=== PATIENT | male | born 1960 | race Caucasian/White ===

== ENCOUNTER → 2021-08-16 09:24 | Outpatient (BNVA) | payer SELFPAY | PROVIDERS: Visit Provider Physician Assistant Medical | DX: Z02.79 Encounter for issue of other medical certificate (principal) ==

== ENCOUNTER → 2022-09-10 13:30 | Outpatient (BNVA) | payer SELFPAY | PROVIDERS: Visit Provider Physician Assistant Medical | DX: Z02.1 Encounter for pre-employment examination (principal) ==

== ENCOUNTER 2025-01-21 15:08 | Outpatient (AMB) | payer MEDICARE, OTHER, SELFPAY ==
--- NOTE | 2025-01-21 15:09 | A.OFFVIS_ITS ---
Vital Signs 01/21/25 15:15 Height 5 ft 10 in Weight 194 lb BMI 27.8 BP 136/86 Blood Pressure Location Lt brachial Position Sitting Respiration 16 Pulse 63 Pulse Source Pulse Oximeter Pulse Oximetry (%) 98 Oxygen Delivery Method Room Air Intake Visit Reasons: Back pain Office Auditor Required: No Accompanied by: Self / Same As Patient Allergies codeine Allergy (Mild, Verified 01/21/25 15:18) Migraine HPI Comments Details: The patient is a 64-year-old male presenting with chronic low back pain. The chronic low back pain began in 1987 following a work-related injury involving [employer], which led to multiple surgeries over the years, inc luding a fusion in 1994 and hardware removal in 1996. The pain has persisted and worsened over time, with symptoms including numbness and tingling in the legs and feet, exacerbated by prolonged sitting or standing. The patient reports that sneezing or coughing exacerbates the pain, which radiates up the spine and down the left side. The patient has been under the care of multiple specialists and has tried various interventions, including physical therapy, medicare insurance specialist, and medication management. Current medications include Percocet, muscle relaxers and Valium, though the patient reports difficulty obtaining consistent prescriptions due to concerns about potential overdose. Completed physical therapy approximately a month ago without improvement of his symptoms. Denies red flag symptoms including new loss of bowel, bladder or saddle anesthesia - Onset: Began in 1987 following a work-related injury - Quality: Described as severe, with numbness and tingling - Location: Primarily in the lower back, radiating to legs and feet - Radiation: Pain radiates up the spine and down the left side - Exacerbating factors: Prolonged sitting, standing, sneezing, coughing - Relieving factors: patient care technician, movement - Interference: Affects ability to walk, sit, and perform daily activities - Affect: Pain impacts mood and psychological wellbeing, causing frustration - Analgesia: Current medications include Percocet and Valium, with inconsistent prescription access - Adverse Effects: Concerns about potential overdose with long-term medication use - Activities of Daily Living: 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 Answers questions appropriately. Fully engaged in examination. Skin: warm, dry, intact HEENT: Normocephalic. Hearing intact. Cardiac: External chest normal in appearance. Respiratory: No cough, audible wheezing or stridor. Abdomen: without gross distension. MS: No obvious swelling or deformities. Able to stand on bilateral tiptoes and bilateral heels.? Able to transition from sit to stand unassisted. Ambulates with bilaterally normal heel strike and toe off SLR negative bilaterally Tenderness over midline lumbar vertebrae and lumbar paraspinal muscles Full lumbar range of motion. Pain with extension. Nontender over bilateral PSIS Neurological: Oriented to person, place, time and situation. Thought process intact. No gait abnormalities appreciated. Psychiatric: Appropriate mood and affect. Good judgment and insight. Vital Signs: Last Vital Signs Pulse 63 01/21/25 15:15 Resp 16 01/21/25 15:15 BP 136/86 01/21/25 15:15 Pulse Ox 98 01/21/25 15:15 Oxygen Delivery Method Room Air 01/21/25 15:15 BMI result Body Mass Index 27.8 Assessment & Plan Assessment & Plan (1) Post laminectomy syndrome: Code(s): M96.1 - Postlaminectomy syndrome, not elsewhere classified Category: Medical (2) Chronic pain syndrome: Code(s): G89.4 - Chronic pain syndrome Category: Medical (3) Degenerative disc disease, lumbar: Code(s): M51.369 - Other intervertebral disc degeneration, lumbar region without mention of lumbar back pain or lower extremity pain Category: Medical (4) Lumbar spondylosis: Code(s): M47.816 - Spondylosis without myelopathy or radiculopathy, lumbar region Category: Medical (5) History of lumbar fusion: Code(s): Z98.1 - Arthrodesis status Category: Surgical Plan The plan includes obtaining updated imaging studies, specifically an MRI and x- ray, to assess the current state of the spine and identify any potential issues such as scar tissue or structural changes. Interventional management options, including spinal cord stimulation and injections, will be considered based on the imaging results. The patient will continue with current medications, including Percocet and Valium, while exploring alternative pain management strategies. Follow-up appointments will be scheduled after the imaging studies to discuss further management options. Patient was informed and verbally consented to the use of an ambient scribe for clinic note documentation during this visit. Orders: Orders XR lumbar spine 4V min Today G89.4 - Chronic pain syndrome, M47.816 - Spondylosis without myelopathy or radiculopathy, lumbar region, M51.369 - Other intervertebral disc degeneration, lumbar region without mention of lumbar back pain or lower extremity pain, M96.1 - Postlaminectomy syndrome, not elsewhere classified, Z98.1 - Arthrodesis status MR lumbar spine wo con Today G89.4 - Chronic pain syndrome, M47.816 - Spondylosis without myelopathy or radiculopathy, lumbar region, M51.369 - Other intervertebral disc degeneration, lumbar region without mention of lumbar back pain or lower extremity pain, M96.1 - Postlaminectomy syndrome, not elsewhere classified, Z98.1 - Arthrodesis status Patient Instructions: - Schedule MRI and x-ray appointments as soon as possible. - Continue taking prescribed medications, including Percocet and Valium, as directed. - Follow up with the clinic after imaging studies are completed to discuss results and treatment options. - Consider alternative pain management strategies discussed during the visit. Coding Level of Care Code New Pt Level 4 (94440) Complex EM visit Add On G2211 Diagnoses Post laminectomy syndrome M96.1 Chronic pain syndrome G89.4 Degenerative disc disease, lumbar M51.369 Lumbar spondylosis M47.816 History of lumbar fusion Z98.1
--- OUTSIDE RECORDS SUMMARY | 2025-01-21 15:10 | XMS_ITS | Clinical Summary ---
Author Organization [facility] Address [address] [place] [address] Care Team Providers Care Fire Extinguisher Repairer Name Role Phone Joe Ball MD Primary Care Provider + [phone] Allergies Active Allergy Reactions Criticality Noted Date Comments Codeine 04/19/2021 Medications Medication Sig Dispensed Refills Start Date End Date Status Valium 5 MG tablet Take 5 mg by mouth every 12 (twelve) hours as needed. for anxiety 0 04/12/2021 Active dronabinol (MARINOL) 10 MG capsule TAKE ONE CAPSULE BY MOUTH 3 TIMES A WEEK AT BEDTIME 0 04/12/2021 Active omeprazole (PriLOSEC) 40 MG capsule Take 40 mg by mouth 2 (two) times a day. 0 04/12/2021 Active ondansetron (ZOFRAN) 4 MG tablet TAKE ONE TABLET BY MOUTH EVERY 8 HOURS NEEDED FOR NAUSEA & VOMITING 0 04/12/2021 Active Percocet 7.5-325 MG per tablet TAKE TWO TABLETS BY MOUTH THREE TIMES A DAY NEEDED FOR PAIN 0 04/12/2021 Active Scopolamine (TRANSDERM-SCOP) 1 MG/3DAYS PLACE 1 PATCH ONTO THE SKIN EVERY 3 DAYS 0 03/16/2021 Active tiZANidine (ZANAFLEX) 4 MG tablet TAKE ONE TO TWO TABLETS BY MOUTH THREE TIMES A DAY NEEDED FOR MUSCLE SPASMS 0 04/12/2021 Active Active Problems No known active problems Social History Tobacco Use Types Packs/Day Years Used Date Smoking Tobacco: Never Smokeless Tobacco: Never Alcohol Use Standard Drinks/Week Comments Yes 0 (1 standard drink = 0.6 oz pur e alcohol) Couple times a week Sex and Gender Information Value Date Recorded Sex Assigned at Not on file Gender Identity Not on file Sexual Orientation Not on file Last Filed Vital Signs Vital Sign Reading Time Taken Comments Blood Pressure 130/74 04/19/2021 2:11 PM EST Pulse 69 04/19/2021 2:11 PM EST Temperature 36.3 C (97.4 F) 04/19/2021 2:11 PM EST Respiratory Rate - - Oxygen Saturation 100% 04/19/2021 2:11 PM EST Inhaled Oxygen Concentration - - Weight 85.3 kg (188 lb) 04/19/2021 2:11 PM EST Height 177.8 cm (5' 10 ) 04/19/2021 2:11 PM EST Body Mass Index 26.98 04/19/2021 2:11 PM EST Plan of Treatment Health Maintenance Due Date Last Done Comments Hepatitis C Screening 1960 COVID-19 Vaccine (#1) 03/30/1961 Depression Screening 1972 Preventative Health Evaluation 1978 DTap / Tdap / Td (1 - Tdap) 09/29/1979 Colon Cancer Screening (Colonoscopy) 2005 Shingrix-Zoster Vaccine (1 of 2) 2010 Influenza Vaccine (#1) 2025 Pneumococcal Vaccine (1 of 1 - PCV) 2025 RSV Adult > 60+ Yrs or Pregn ant (1 - 1-dose 75+ series) 09/29/2035 Hepatitis B Vaccines Aged Out No long er eligible based on patient's age to complete this topic Pneumococcal Vaccine Aged Out No long er eligible based on patient's age to complete this topic RSV Ped < 20 months Aged Out No longe r eligible based on patient's age to complete this topic Care Teams Fire Extinguisher Repairer Relationship Specialty Start Date End Date Joe Ball MD PCP - General Head Banquet Waiter/Waitress 04/19/21
[2025-01-21 15:15] VITALS: BP 136/86; PULSE 63; RESP 16; O2SAT 98; BMI 27.8
== END 2025-01-21 15:53 | disposition home or self-care (01) ==
LOC: HO.PMC 15:09
PROVIDERS: Visit Provider Registered Nurse Emergency
DX: M96.1 Postlaminectomy syndrome, not elsewhere classified (principal); G89.4 Chronic pain syndrome; M51.369 Other intervertebral disc degeneration, lumbar region without mention of lumbar back pain or lower extremity pain; M47.816 Spondylosis without myelopathy or radiculopathy, lumbar region; Z98.1 Arthrodesis status
CPT/HCPCS: 99204; G2211

== ENCOUNTER → 2025-01-21 15:08 | Outpatient (BNVA) | payer OTHER, MEDICARE, SELFPAY | PROVIDERS: Visit Provider Registered Nurse Emergency | DX: M96.1 Postlaminectomy syndrome, not elsewhere classified (principal); G89.4 Chronic pain syndrome; M51.369 Other intervertebral disc degeneration, lumbar region without mention of lumbar back pain or lower extremity pain; M47.816 Spondylosis without myelopathy or radiculopathy, lumbar region; Z98.1 Arthrodesis status | CPT/HCPCS: 99202 ==

== ENCOUNTER 2025-02-26 16:38 | Outpatient (REF) | payer OTHER, MEDICARE, SELFPAY ==
--- NOTE | ~2025-02-26 | MR_ITS ---
CLINICAL HISTORY: M96.1 - Postlaminectomy syndrome, not elsewhere classified --- Additional Notes or Special Instructions: Lower back pain with bilateral lower extremity numbness, weakness, MR lumbar spine with and without gadolinium Comparison: None Findings: Minimal retrolisthesis of L2 on L3 and L1 on L2. L5 laminectomy. Multilevel endplate degenerative changes. No acute fracture or pathologic bone lesion. Cauda equina is within normal limits. No cord signal abnormality. Multilevel degenerative changes: L1-L2: Minimal retrolisthesis of L1 on L2 and bilateral facet arthropathy causing mild spinal canal and moderate right neural foraminal stenosis. L2-L3: Disc bulge and facet arthropathy causing moderate spinal canal stenosis with crowding of the nerve roots, severe right and moderate left neural foraminal stenosis. L3-L4: Disc bulge asymmetric to the left, facet and ligamentum flavum hypertrophy causing severe spinal canal stenosis asymmetric to the left with crowding of the nerve roots, and moderate bilateral neural foraminal stenosis. L4-L5: Mild right neural foraminal stenosis. L5-S1: No significant spinal canal or neural foraminal stenosis. Fatty atrophy of the lower paraspinal muscles. IMPRESSION: Multilevel degenerative changes as above. This document has been electronically signed by: Gregory Vega MD on 03/01/2025 02:14:21
--- OUTSIDE RECORDS SUMMARY | 2025-02-26 16:43 | XMS_ITS | Clinical Summary ---
Author Organization [facility] [address] [facility] lding Address [address] [place] [phone] Phone Care Team Providers Care Assembly Machine Feeder Name Role Phone Unavailable Primary Care Provider Unavailabl e Allergies Active Allergy Reactions Criticality Noted Date Comments Codeine Headache 01/30/2016 Medications albuterol HFA (PROAIR HFA ; PROVENTIL HFA ; VENTOLIN HFA) 90 mcg/actuation inhaler Inhale 2 Puffs into the lungs every 6 hours as needed for Cough, Wheezing or Shortness of Breath for up to 30 days. 12/24/19 24 Active pravastatin (PRAVACHOL) 40 mg tablet Take 1 tablet (40 mg total) by mouth 1 (one) time each day. 30 each 5 08/19/19 25 Active omeprazole (PriLOSEC) [address] capsule TAKE ONE CAPSULE BY MOUTH TWICE A DAY 180 capsule 1 09/04/19 25 Active amLODIPine-benazep ril (LOTREL) 10-40 mg per capsule TAKE ONE CAPSULE BY MOUTH EVERY DAY 90 capsule 1 09/07/19 25 Active droNABinol (MARINOL) 10 mg capsule Take 1 capsule 2 X weekly for 1 week and then 1 capsule X 1 week and then discontinue 3 capsule 09/25/19 25 Active tiZANidine (ZANAFLEX) 4 mg tablet Take one tablet 3 times a day for 30 days and then discontinued 90 tablet 09/25/19 25 Active Percocet 7.5-325 mg per tablet Take 1 tablet twice daily X 14 days and then 1 tab once daily X 14 days and then discontinue 42 tablet 10/23/19 25 Active Valium 5 mg tablet Take 1 tablet (5 mg total) by mouth at bedtime as needed for muscle spasms. Max Daily Amount: 5 mg 10/07/19 25 Active ondansetron ODT (ZOFRAN-ODT) 4 mg disintegrating tablet Dissolve 1 tablet (4 mg total) on top of the tongue every 8 (eight) hours if needed for vomiting or nausea. 01/18/20 25 Active umeclidinium-vilan teroL (Anoro Ellipta) 62.5-25 mcg/actuation inhaler Inhale 1 puff by mouth 1 (one) time each day. 1 each 01/19/20 25 026 Active albuterol HFA (PROAIR HFA ; PROVENTIL HFA ; VENTOLIN HFA) 90 mcg/actuation inhaler Inhale 2 puffs by mouth every 6 (six) hours if needed for wheezing or shortness of breath. 1 each 01/19/20 026 Active Hospital, Clinic, or Other Facility Administered Medication Ordered Dose Route Frequency Start Date End Date Status triamcinolone acetonide (KENALOG-40) 40 mg/mL injection 40 mgIndications:Arthriti s of carpometacarpal (CMC) joint of right thumb 40 mg IAtc Once PRN Procedure 02/03/2025 02/03/2025 Ended Active Problems Problem Noted Date Diagnosed Date BPH (benign prostatic hyperplasia) 01/17/2025 Cervical disc disorder at C5-C6 level with radic ulopathy 01/17/2025 Dysphagia 03/22/2024 Hemorrhoids 03/22/2024 Cervical nerve root compression 12/20/2022 Lumbar radiculopathy 12/20/2022 Wheeze 08/27/2022 Chronic pain syndrome 08/15/2022 Failed back syndrome 08/15/2022 Rosacea 01/25/2021 Injury of triangular fibrocartilage complex of l eft wrist 06/28/2020 Contusion of left wrist 06/21/2020 Hypercholesteremia 04/10/2018 Obstructive sleep apnea 02/05/2017 Overview (03/22/2024): Home sleep study on 01/28/17 showed SUNSHINE of 28. Average oxygen saturation 95% with a bonnie of 82%. Sleep medicine services arranging treatment and follow-up with C Pap settings of 6-16 cm/H2O Hypertension 07/07/2014 Diverticulitis of colon without hemorrhage 07/30 Overview (03/22/2024): Incidental finding at colonoscopy 07/30/2012. Eczema of hand 08/13/2010 Cardiomyopathy (CMS/HCC V24, CMS/HCC V28) 2009 Overview (03/22/2024): Asymmetric septal hypertrophy 2005 (Alin)--normal stress echo, no outflow obstr--observation Cardiology 07/19 Hemorrhoids, external 10/18/2008 Depression 04/03/2008 Erectile dysfunction 04/03/2008 Chest pain 11/20/2007 Overview (03/22/2024): 10/14 (Steele) indeterminate stress echo(lateral wall hypokinesis), Mibi normal Esophageal reflux 10/22/2005 Overview (03/22/2024): EGD 02/27 Lumbago 10/22/2005 Overview (03/22/2024): Workers comp injury 1987, 03/27/94 Lumbar Disc surgery, fusion--1987, 1993, 1994, 1996--residual chronic pain [facility] until 2004 Hosp 03/16 Donovan Romero (chiro) Encounters Date Type Department Care Team Description 02/03/2025 3:00 PM EDT Office Visit Orthopedic Surgery - [place] [facility] [address] [place] [phone] Rogerio Gilbert PA Arthritis of carpometacarpal (CMC) joint of right thumb (Primary Dx); Bilateral hand numbness 01/18/2025 11:00 AM EDT Office Visit Pulmonology - [place] [address] [facility] [address] [place] [phone] Genie Banuelos MD Chronic obstructive pulmonary disease, unspecified COPD type (CMS/HCC V24, CMS/HCC V28) (Primary Dx); MARY on CPAP from Last 3 Months Immunizations Name Administration Dates Next Due Tdap Tetanus diptheria acell ular pertussis (Boostrix; Adacel) 7yo and older 03/23/2019,08/18/2008 Surgical History Surgery Date Site/Laterality Comments OTHER SURGICAL HISTORY PROCEDURE: IA LAMOT PRTL FFD EXC DISC REEXPL 1 NTRSPC LUMBAR; COMMENT: INV DISCS L4-5 AND L5-S1 COLONOSCOPY 2012 PROCEDURE: IA COLONOSCOPY FLX DX W/COLLJ SPEC WHEN PFRMD; COMMENT: diverticulosis HERNIA REPAIR 07/24 PROCEDURE: HISTORICAL HERNIA REPAIR/UMB VASECTOMY PROCEDURE: HISTORICAL VASECTOMY CARPAL TUNNEL RELEASE 06/2017 Right PROCEDURE: HISTORICAL CARPAL TUNNEL REL HAND SURGERY 1980 Left PROCEDURE: HISTORICAL HAND SURGERY; COMMENT: Dr. Salguero, exploration and removal of glass fragments and tendon reconstruction ESOPHAGOGASTRODUODENOSCOPY PROCEDURE: IA EGD TRANSORAL BIOPSY SINGLE/MULTIPLE; COMMENT: Performed in February 2021 duodenal adenomatous polyp COLONOSCOPY PROCEDURE: HISTORICAL COLONOSCOPY COLONOSCOPY PROCEDURE: HISTORICAL COLONOSCOPY; COMMENT: Performed with endoscopy on July 16, 2021 ESOPHAGOGASTRODUODENOSCOPY PROCEDURE: IA EGD TRANSORAL BIOPSY SINGLE/MULTIPLE; COMMENT: Performed with colonoscopy in July 2021 Medical History Medical History Date Comments Lumbago DX:Lumbago Observation following accident at work DX:Observation following accident at work Lumbago DX:Lumbago; COMM ENT: PAIN MANAGEMENT Heart disease, unspecified DX:He art disease, unspecified Unspecified essential hypertension DX:Unspecified essential hypertension Esophageal reflux 10/22/2005 DX:Esophageal reflux Diverticulosis of colon (wit hout mention of hemorrhage) 07/30/2012 DX:Diverticulosis of colon ( without mention of hemorrhage) Hypertension 07/07/2014 DX:Hypertension Sprain of radiocarpal joint of right wrist 03/18/2016 DX:Sprain of radiocarpal theodore nt of right wrist HOCM (hypertrophic obstructi ve cardiomyopathy) (CMS/HCC V24, CMS/HCC V28) 09/27/2009 DX:HOCM (hypertrophic obstru ctive cardiomyopathy) ([facility]); COMMENT: Probably not; see Kin 2011. Echo 02/20 normal Obstructive sleep apnea 02/05/2017 DX:Obstr uctive sleep apnea; COMMENT: Home sleep study on 01/28/17 showed SUNSHINE of 28. Average oxygen saturation 95% with a bonnie of 82%. Sleep medicine services arranging treatment and follow-up with C Pap settings of 6-16 cm/H2O Opiate analgesic contract exists 12/29/2018 DX:Opiate analgesic contract exists Dysphagia DX:Dysphagia Cervical spondylosis without myelopathy DX:Cervical spondylosis with out myelopathy Depressive disorder DX:Depressiv e disorder Hyperlipidemia DX:Hyperlipidemi a Family history of colon canc er in mother DX:Family history of colon c ancer in mother Hemorrhoids DX:Hemorrhoids Wheeze 08/27/2022 DX:Wheeze Family History Medical History Relation Name Comments Throat cancer Father No Known Problems Maternal Grandfather Diabetes Maternal Grandmother Heart attack Mother Strabismus Other 1 Diabetes Other 2 No Known Problems Paternal Grandfather No Known Problems Paternal Grandmother Blindness Neg Hx Cataracts Neg Hx Glaucoma Neg Hx Macular degeneration Neg Hx Relation Name Status Comments Brother Alive Father Maternal Grandfather Maternal Grandmother Mother Other 1 Other 2 Paternal Grandfather Paternal Grandmother Sister Alive Social History Tobacco Use Types Packs/Day Years Used Date Smoking Tobacco: Never Smokeless Tobacco: Never Tobacco Cessation:Counseling Given: Not Answered Alcohol Use Standard Drinks/Week Comments Yes 0 (1 standard drink = 0.6 oz pur e alcohol) social Sex and Gender Information Value Date Recorded Sex Assigned at Not on file Legal Sex Male 11:16 AM EST Gender Identity Not on file Sexual Orientation Not on file Obstetrics History Last Filed Vital Signs Vital Sign Reading Time Taken Comments Blood Pressure 139/68 01/18/2025 10:09 AM EDT Pulse 68 01/18/2025 10:09 AM EDT Temperature 36.4 C (97.6 F) 01/18/2025 10:09 AM EDT Respiratory Rate 20 01/18/2025 10:09 AM EDT Oxygen Saturation 100% 01/18/2025 10:09 AM EDT Inhaled Oxygen Concentration - - Weight 89.4 kg (197 lb) 01/18/2025 10:09 AM EDT Height 177.8 cm (5' 10 ) 01/18/2025 10:09 AM EDT Body Mass Index 28.27 01/18/2025 10:09 AM EDT Plan of Treatment Upcoming Encounters Date Type Department Care Team (Late st Contact Info) Description 04/12/2025 4:00 PM EST Office Visit Orthopedic Surgery - [place] [address] [place] [phone] Rogerio Gilbert PA [address] [place] [address] 07/19/2025 3:45 PM EST Office Visit Pulmonology - [place] [address] [phone] Genie Banuelos MD [address] [id number] Health Maintenance Due Date Last Done Comments Pneumococcal Vaccine: 50+ Years (1 of 2 - PCV) 09/29/1979 Zoster Vaccines (1 of 2) 2010 RSV Immunization Adult Patients (1 - Risk 60-74 years 1-dose series) 2020 HIV Screening 05/18/2022 Medicare Annual Wellness Visit 05/18/2022 Social Influencers of Health Screening 05/18/2022 Depression Screening 06/09/2024 COVID-19 Vaccine ( season) 2025 12/03/2021, 05/28/2021, 09/24/2020, Additional history exists Influenza Vaccine (#1) 2025 Hypertension/CHF/CAD Annual BMP Blood Test 08/17/2025 08/17/2024, 07/29/2023 Colorectal Cancer Screening: Colonoscopy 07/10/2026 07/16/2021 Cholesterol Screening (Lipid Panel) 08/17/2029 08/17/2024, 07/29/2023 DTaP,Tdap,and Td Vaccines (4 - Td or Tdap) 06/29/2031 06/29/2021, 03/23/2019, 08/18/2008 Hepatitis C Screening Completed 02/03/2014 HIB Vaccines Aged Out No longer eligi ble based on patient's age to complete this topic HPV Vaccines Aged Out No longer eligi ble based on patient's age to complete this topic Hepatitis A Vaccines Aged Out No long er eligible based on patient's age to complete this topic Hepatitis B Vaccines Aged Out No long er eligible based on patient's age to complete this topic IPV Vaccines Aged Out No longer eligi ble based on patient's age to complete this topic MMR Vaccines Aged Out No longer eligi ble based on patient's age to complete this topic Meningococcal ACWY Vaccine Aged Out N o longer eligible based on patient's age to complete this topic Meningococcal B Vaccine Aged Out No l onger eligible based on patient's age to complete this topic RSV Immunization Patients Under 20 months Aged Out No longer eligible based on patient's age to complete this topic Varicella Vaccines Aged Out No longer eligible based on patient's age to complete this topic Procedures Procedure Name Priority Date/Time Associated Diagnosis Comments IA ARTHROCENTESIS/ASPIRA TION/INJECTION SMALL JOINT/BURSA WO U/S GUIDANCE Routine 02/03/2025 3:00 PM EDT Arthritis of carpometacarpal (CMC) joint of right thumb COMPREHENSIVE METABOLIC PANEL Routine 08/17/2024 3:00 PM EDT Hypercholesteremia LIPID PANEL WITH REFLEX TO DIRECT LDL Routine 08/17/2024 3:00 PM EDT Hypercholesteremia HM COLONOSCOPY Routine 07/16/2021 HEPATITIS C SCREENING Routine 02/03/2014 from Last 3 Months or Most Recently Relevant to Health Maintenance Results * IA ARTHROCENTESIS/ASPIRATION/INJECTION SMALL JOINT/BURSA WO U/S GUIDANCE (02/03/2025 3:00 PM EDT) Narrative Rogerio Gilbert PA - 02/03/2025 3:00 PM EDT REGLA Sosa 02/03/2025 4:45 PM S Inj/Asp: R thumb CMC Indications: pain Details: 27 G needle, dorsal approach Medications: 40 mg triamcinolone acetonide 40 mg/mL Site was prepped in standard fashion using alcohol swab, sterile technique was used to perform the injection, the patient tolerated the procedure well and a band-aid dressing was applied Informed Consent: Site: Right thumb cmc joint Laterality: Right Relevant images/test results available and reviewed: yes Health status cleared: Yes Procedure/treatment, purpose, treatment alternatives, risks/potential complications and benefits explained: yes Risk/complications/benefits details: Risks and benefits of corticosteroid injection were discussed, including risk of pain, bleeding, infection, tissue attenuation, tendon rupture, changes in skin color, and injury to surrounding structures such as arteries, veins and nerves. We also discussed the patient may develop worsening pain for a few days before having improvement in their symptoms. Patient questions answered: yes Patient agrees, verbalizes understanding, and wants to proceed: yes Consent given by: Patient Informed consent discussion completed by Physician/PEBBLES with patient: Verbal Pre-procedure timeout performed: yes Rogerio ARAUZ IN CLINIC/BEDSIDE ORDERABLES Fi nal Result * (ABNORMAL) Lipid panel with reflex to direct LDL (08/17/2024 3:00 PM EDT) Cholesterol 197 0 - 200 mg/dL LAB CHEMISTRY METHOD 08/17/2024 6:54 PM EDT [facility] Triglycerides 114 0 - 150 mg/dL LAB CHEMISTRY METHOD 08/17/2024 6:54 PM EDT [facility] HDL 56 >=40 mg/dL LAB CHEMISTRY METHOD 08/17/2024 6:54 PM EDT [facility] LDL Calculated 118(H) 0 - 100 mg/dL LAB CHEMISTRY METHOD 08/17/2024 6:54 PM EDT [facility] VLDL Cholesterol Kayden 22.8 mg/dL LAB CHEMISTRY METHOD 08/17/2024 6:54 PM EDT [facility] Non HDL Chol. (LDL+VLDL) 141 <145 mg/dL LAB CHEMISTRY METHOD 08/17/2024 6:54 PM EDT [facility] Chol/HDL Ratio 3.5 0.0 - 4.4 LAB CHEMISTRY METHOD 08/17/2024 6:54 PM EDT [facility] Blood Venous blood specimen / Unknown Venipuncture / Unknown 08/17/2024 3:00 PM EDT 08/17/2024 3:00 PM EDT Mike ARAUZ LAB BLOOD ORDERABLES Final Res ult [facility] [address] [place] [address], [place] [phone] * Comprehensive metabolic panel (08/17/2024 3:00 PM EDT) Sodium 138 133 - 145 mmol/L LAB CHEMISTRY METHOD 08/17/2024 6:54 PM [facility] Potassium 4.0 3.5 - 5.5 mmol/L LAB CHEMISTRY METHOD 08/17/2024 6:54 PM [facility] Chloride 105 96 - 110 mmol/L LAB CHEMISTRY METHOD 08/17/2024 6:54 PM [facility] CO2 24 21 - 32 mmol/L LAB CHEMISTRY METHOD 08/17/2024 6:54 PM [facility] Anion Gap 9 3 - 11 LAB CHEMISTRY METHOD 08/17/2024 6:54 PM [facility] Glucose 84 70 - 100 mg/dL LAB CHEMISTRY METHOD 08/17/2024 6:54 PM [facility] BUN 19 5 - 25 mg/dL LAB CHEMISTRY METHOD 08/17/2024 6:54 PM [facility] Creatinine 0.83 0.70 - 1.30 mg/dL LAB CHEMISTRY METHOD 08/17/2024 6:54 PM [facility] eGFR 98 >=60 mL/min/1. 73m2 LAB CHEMISTRY METHOD 08/17/2024 6:54 PM [facility] Comment:Calculation based on the Chronic Kidney Disease Epidemiology Collaboration (CKD-EPI) equation refit without adjustment for race. BUN/Creatinine Ratio 22.9 LAB CHEMISTRY METHOD 08/17/2024 6:54 PM [facility] Calcium 9.2 8.5 - 10.5 mg/dL LAB CHEMISTRY METHOD 08/17/2024 6:54 PM [facility] AST (SGOT) 16 10 - 42 unit/L LAB CHEMISTRY METHOD 08/17/2024 6:54 PM EDT [facility] ALT (SGPT) 27 10 - 60 unit/L LAB CHEMISTRY METHOD 08/17/2024 6:54 PM EDT [facility] Alkaline Phosphatase 80 42 - 121 unit/L LAB CHEMISTRY METHOD 08/17/2024 6:54 PM EDT [facility] Total Protein 7.7 6.0 - 8.0 g/dL LAB CHEMISTRY METHOD 08/17/2024 6:54 PM EDT [facility] Albumin 4.2 3.2 - 5.0 g/dL LAB CHEMISTRY METHOD 08/17/2024 6:54 PM EDT [facility] Total Bilirubin 0.5 0.0 - 1.4 mg/dL LAB CHEMISTRY METHOD 08/17/2024 6:54 PM EDT [facility] Blood Venous blood specimen / Unknown Venipuncture / Unknown 08/17/2024 3:00 PM EDT 08/17/2024 3:00 PM EDT Mike ARAUZ LAB BLOOD ORDERABLES Final Res ult [facility] [address] [place] [address], * Colonoscopy (07/16/2021) Colonoscopy no interpretation , abstracted Anatomical Region Laterality Modality Other Historical Provider HEALTH MAINTENANCE Final Result * Hepatitis C Screening (02/03/2014) Pathologist [facility] Hepatitis C Screening abstracted Historical Provider HEALTH MAINTENANCE Final Result from Last 3 Months or Most Recently Relevant to Health Maintenance Insurance [facility] [place] [address] [facility]
--- OUTSIDE RECORDS SUMMARY | 2025-02-26 16:43 | XMS_ITS | Clinical Summary ---
Author Organization [facility] Address [address] [place] [address] Care Team Providers Care Factory Process Workers Name Role Phone Joe Ball MD Primary Care Provider + [phone] Allergies Active Allergy Reactions Criticality Noted Date [...] age to complete this topic Care Teams Factory Process Workers Relationship Specialty Start Date End Date Joe Ball MD PCP - General Tool And Production Planner 04/19/21
== END 2025-02-26 16:39 | disposition home or self-care (01) ==
LOC: HO.MRI 16:38
PROVIDERS: Visit Provider Registered Nurse Emergency
DX: M96.1 Postlaminectomy syndrome, not elsewhere classified (principal); M47.816 Spondylosis without myelopathy or radiculopathy, lumbar region; M51.369 Other intervertebral disc degeneration, lumbar region without mention of lumbar back pain or lower extremity pain; G89.4 Chronic pain syndrome; Z98.1 Arthrodesis status
CPT/HCPCS: 72158; A9585

== ENCOUNTER → 2025-02-26 16:56 | Outpatient (BNV) | payer OTHER, SELFPAY | PROVIDERS: Visit Provider Radiology Diagnostic Radiology | DX: M51.369 Other intervertebral disc degeneration, lumbar region without mention of lumbar back pain or lower extremity pain (principal) | CPT/HCPCS: 72158 ==

== ENCOUNTER 2025-04-08 15:27 | Outpatient (AMB) | payer OTHER, SELFPAY ==
--- NOTE | 2025-04-08 15:31 | A.OFFVIS_ITS ---
Vital Signs 04/08/25 15:35 Height 5 ft 10 in Weight 203 lb 2 oz BMI 29.1 BP 169/88 H Blood Pressure Location Rt brachial Position Sitting Pulse 67 Pulse Source Pulse Oximeter Pulse Oximetry (%) 98 Oxygen Delivery Method Room Air Intake Visit Reasons: XR, MRI results Intake Note: Pain today 11/16 Instructional Design Manager Required: No Accompanied by: Self / Same As Patient Allergies codeine Allergy (Mild, Verified 04/08/25 15:35) Migraine HPI Comments Details: The patient is a 64-year-old male presenting with chronic back pain associated with lumbar spinal stenosis and disc bulge. In the office today to review recent MRI. The patient also has a history of lumbar disc bulge, particularly at the L3-4 level, which is asymmetric to the left and contributes to the spinal stenosis. The disc bulge has resulted in severe spinal canal stenosis, causing significant discomfort and functional limitations. This condition has been associated with severe pain that radiates down both legs, becoming more pronounced with prolonged sitting or driving, leading to numbness in the feet. The patient underwent a lumbar laminectomy at the L5 level, with a history of hardware placement and subsequent removal. The laminectomy was performed to a lleviate symptoms, but the patient continues to experience significant pain and functional impairment. Additionally, the patient has been diagnosed with arthritis of the spine, contributing to the overall pain and discomfort experienced. - Pain radiates down both legs, more pronounced with prolonged sitting or driving. - Numbness in the feet occurs after sitting for more than half an hour. - Pain is associated with lumbar spinal stenosis and disc bulge, particularly at L3-4. - Affect: Pain impacts daily activities, causing significant discomfort. - Analgesia: Previous cortisone injections in other areas have had variable success. - Activities of Daily Living: Pain limits prolonged sitting and driving. Review of Systems Narrative - Neurological: Reports pain radiating down both legs, numbness in feet after prolonged sitting. Physical Exam Exam Exam: General: awake, alert, oriented. Answers questions appropriately. Fully engaged in examination. Skin: warm, dry, intact HEENT: Normocephalic. Hearing intact. Cardiac: External chest normal in appearance. Respiratory: No cough, audible wheezing or stridor. Abdomen: without gross distension. MS: No obvious swelling or deformities. Able to transition from sit to stand unassisted. Ambulates with bilaterally normal heel strike and toe off Neurological: Oriented to person, place, time and situation. Thought process intact. No gait abnormalities appreciated. Psychiatric: Appropriate mood and affect. Good judgment and insight. Vital Signs: Last Vital Signs Pulse 67 04/08/25 15:35 BP 169/88 H 04/08/25 15:35 Pulse Ox 98 04/08/25 15:35 Oxygen Delivery Method Room Air 04/08/25 15:35 BMI result Body Mass Index 29.1 Results Reviewed Results Reviewed: 03/01/25 MRI LS MR lumbar spine with and without gadolinium Comparison: None Findings: Minimal retrolisthesis of L2 on L3 and L1 on L2. L5 laminectomy. Multilevel endplate degenerative changes. No acute fracture or pathologic bone lesion. Cauda equina is within normal limits. No cord signal abnormality. Multilevel degenerative changes: L1-L2: Minimal retrolisthesis of L1 on L2 and bilateral facet arthropathy causing mild spinal canal and moderate right neural foraminal stenosis. L2-L3: Disc bulge and facet arthropathy causing moderate spinal canal stenosis with crowding of the nerve roots, severe right and moderate left neural foraminal stenosis. L3-L4: Disc bulge asymmetric to the left, facet and ligamentum flavum hypertrophy causing severe spinal canal stenosis asymmetric to the left with crowding of the nerve roots, and moderate bilateral neural foraminal stenosis. L4-L5: Mild right neural foraminal stenosis. L5-S1: No significant spinal canal or neural foraminal stenosis. Fatty atrophy of the lower paraspinal muscles. IMPRESSION: Multilevel degenerative changes as above. Assessment & Plan Assessment & Plan (1) Post laminectomy syndrome: Code(s): M96.1 - Postlaminectomy syndrome, not elsewhere classified Category: Medical (2) Chronic pain syndrome: Code(s): G89.4 - Chronic pain syndrome Category: Medical (3) Degenerative disc disease, lumbar: Code(s): M51.369 - Other intervertebral disc degeneration, lumbar region without mention of lumbar back pain or lower extremity pain Category: Medical (4) Lumbar spondylosis: Code(s): M47.816 - Spondylosis without myelopathy or radiculopathy, lumbar region Category: Medical (5) History of lumbar fusion: Code(s): Z98.1 - Arthrodesis status Category: Medical (6) Spinal stenosis: Code(s): M48.00 - Spinal stenosis, site unspecified Category: Medical (7) Neurogenic claudication due to lumbar spinal stenosis: Code(s): M48.062 - Spinal stenosis, lumbar region with neurogenic claudication Category: Medical Plan The plan includes considering a steroid injection at the L3-4 level to address the disc bulge and severe stenosis, which may alleviate some of the symptoms in the legs. Patient is heistant to proceed with interventional management options at this time. The patient is advised to think about the procedure and discuss it further if interested. The patient is also informed about the potential for surgical evaluation, but the initial recommendation is to try conservative management with injections. Patient was told non-surgical by neurosurgeon in the past. Patient was informed and verbally consented to the use of an ambient scribe for clinic note documentation during this visit. Patient Instructions: - Consider the option of a steroid injection at L3-4 and contact the clinic if interested. - Monitor symptoms and report any changes or worsening of pain. - Follow up with the clinic for further discussion and management options. - Consider referral or follow up with Neurosurgeon Coding Level of Care Code Est Pt Level 3 (96649) Complex EM visit Add On G2211 Diagnoses Post laminectomy syndrome M96.1 Chronic pain syndrome G89.4 Degenerative disc disease, lumbar M51.369 Lumbar spondylosis M47.816 History of lumbar fusion Z98.1 Spinal stenosis M48.00 Neurogenic claudication due to lumbar spinal stenosis M48.062
--- OUTSIDE RECORDS SUMMARY | 2025-04-08 15:32 | XMS_ITS | Clinical Summary ---
Author Organization [facility] [address] Address [address] [place] [place] [address] Phone Care Team Providers Care Paving Supervisor Name Role Phone Unavailable Primary Care Provider [...] of breath. 1 each 01/19/20 026 Active Active Problems Problem Noted Date Diagnosed Date [...] surgery, fusion--1987, 1993, 1994, 1996--residual chronic pain [facility] until 2004 Hosp 03/16 Donovan Romero (chiro) Encounters Date Type Department Care Team Description 02/03/2025 3:00 PM EDT Office Visit Orthopedic Surgery - [place] [address] [facility] [address] [place] [address] Rogerio Gilbert PA Arthritis of carpometacarpal (CMC) joint of right thumb (Primary Dx); Bilateral hand numbness 01/18/2025 11:00 AM EDT Office Visit Pulmonology - [facility] [address] [facility] [address] [place] [phone] Genie Banuelos MD Chronic obstructive pulmonary disease, unspecified COPD type (CMS/HCC V24, CMS/HCC V28) (Primary Dx); MARY on CPAP from Last 3 Months Immunizations Immunization Administration Dates Next Due Tdap Tetanus diptheria acell ular pertussis (Boostrix; Adacel) 7yo and older 03/23/2019,08/18/2008 Surgical History Surgery Date Site/Laterality Comments OTHER SURGICAL HISTORY PROCEDURE: AL LAMOT PRTL FFD EXC DISC REEXPL 1 NTRSPC LUMBAR; COMMENT: INV DISCS L4-5 AND L5-S1 COLONOSCOPY 2012 PROCEDURE: AL COLONOSCOPY FLX DX W/COLLJ SPEC WHEN PFRMD; COMMENT: diverticulosis HERNIA REPAIR 07/24 PROCEDURE: HISTORICAL HERNIA REPAIR/UMB VASECTOMY PROCEDURE: HISTORICAL VASECTOMY CARPAL TUNNEL RELEASE 06/2017 Right PROCEDURE: HISTORICAL CARPAL TUNNEL REL HAND SURGERY 1980 Left PROCEDURE: HISTORICAL HAND SURGERY; COMMENT: Dr. Salguero, exploration and removal of glass fragments and tendon reconstruction ESOPHAGOGASTRODUODENOSCOPY PROCEDURE: AL EGD TRANSORAL BIOPSY SINGLE/MULTIPLE; COMMENT: Performed in February 2021 duodenal adenomatous polyp COLONOSCOPY PROCEDURE: HISTORICAL COLONOSCOPY COLONOSCOPY PROCEDURE: HISTORICAL COLONOSCOPY; COMMENT: Performed with endoscopy on July 16, 2021 ESOPHAGOGASTRODUODENOSCOPY PROCEDURE: AL EGD TRANSORAL BIOPSY SINGLE/MULTIPLE; COMMENT: Performed with [...] V28) 09/27/2009 DX:HOCM (hypertrophic obstru ctive cardiomyopathy) ([facility]); COMMENT: Probably not; see Kin 2011. Echo [...] PM EST Office Visit Orthopedic Surgery - [address] [facility] [address] [place] [phone] Rogerio Gilbert PA [address] [place] [phone] 07/19/2025 3:45 PM EST Office Visit Pulmonology - [place] [address] [facility] [address] [place] [address] Genie Banuelos MD [facility] [place] [address] Health Maintenance Due Date Last Done Comments Pneumococcal Vaccine: 50+ Years (1 of 2 - PCV) 09/29/1979 RSV Immunization Adult Patients (1 - Risk 50-74 years 1-dose series) 2010 Zoster Vaccines (1 of 2) 2010 HIV Screening 05/18/2022 Medicare Annual Wellness Visit [...] Procedure Name Priority Date/Time Associated Diagnosis Comments AL ARTHROCENTESIS/ASPIRA TION/INJECTION SMALL JOINT/BURSA WO U/S GUIDANCE [...] Recently Relevant to Health Maintenance Results * AL ARTHROCENTESIS/ASPIRATION/INJECTION SMALL JOINT/BURSA WO U/S GUIDANCE (02/03/2025 [...] with patient: Verbal Pre-procedure timeout performed: yes us Rogerio ARAUZ IN CLINIC/BEDSIDE ORDERABLES Fi nal Result * (ABNORMAL) Lipid panel with reflex to direct LDL (08/17/2024 3:00 PM EDT) Cholesterol 197 0 - 200 mg/dL LAB CHEMISTRY METHOD 08/17/2024 6:54 PM EDT [facility] Triglycerides 114 0 - 150 mg/dL LAB CHEMISTRY METHOD 08/17/2024 6:54 PM EDT [facility] HDL 56 >=40 mg/dL LAB CHEMISTRY METHOD 08/17/2024 6:54 PM EDT [facility] LDL Calculated 118(H) 0 - 100 mg/dL LAB CHEMISTRY METHOD 08/17/2024 6:54 PM EDT [facility] VLDL Cholesterol Kayden 22.8 mg/dL LAB CHEMISTRY METHOD 08/17/2024 6:54 PM EDT [facility] Non HDL Chol. (LDL+VLDL) 141 <145 mg/dL LAB CHEMISTRY METHOD 08/17/2024 6:54 PM EDT [facility] Chol/HDL Ratio 3.5 0.0 - 4.4 LAB CHEMISTRY METHOD 08/17/2024 6:54 PM EDT [facility] Blood Venous blood specimen / Unknown Venipuncture / Unknown 08/17/2024 3:00 PM EDT 08/17/2024 3:00 PM EDT us Mike ARAUZ LAB BLOOD ORDERABLES Final Res ult [facility] [address] [place] [address], [place] [phone] * Comprehensive metabolic panel (08/17/2024 3:00 PM EDT) Sodium 138 133 - 145 mmol/L LAB CHEMISTRY METHOD 08/17/2024 6:54 PM [facility] Potassium 4.0 3.5 - 5.5 mmol/L LAB CHEMISTRY METHOD 08/17/2024 6:54 PM [facility] Chloride 105 96 - 110 mmol/L LAB CHEMISTRY METHOD 08/17/2024 6:54 PM [facility] CO2 24 21 - 32 mmol/L LAB CHEMISTRY METHOD 08/17/2024 6:54 PM [facility] Anion Gap 9 3 - 11 LAB CHEMISTRY METHOD 08/17/2024 6:54 PM [facility] Glucose 84 70 - 100 mg/dL LAB CHEMISTRY METHOD 08/17/2024 6:54 PM [facility] BUN 19 5 - 25 mg/dL LAB CHEMISTRY METHOD 08/17/2024 6:54 PM [facility] Creatinine 0.83 0.70 - 1.30 mg/dL LAB CHEMISTRY METHOD 08/17/2024 6:54 PM [facility] eGFR 98 >=60 mL/min/1. 73m2 LAB CHEMISTRY METHOD 08/17/2024 6:54 PM [facility] Comment:Calculation based on the Chronic Kidney Disease Epidemiology Collaboration (CKD-EPI) equation refit without adjustment for race. BUN/Creatinine Ratio 22.9 LAB CHEMISTRY METHOD 08/17/2024 6:54 PM [facility] Calcium 9.2 8.5 - 10.5 mg/dL LAB CHEMISTRY METHOD 08/17/2024 6:54 PM [facility] AST (SGOT) 16 10 - 42 unit/L LAB CHEMISTRY METHOD 08/17/2024 6:54 PM [facility] ALT (SGPT) 27 10 - 60 unit/L LAB CHEMISTRY METHOD 08/17/2024 6:54 PM [facility] Alkaline Phosphatase 80 42 - 121 unit/L LAB CHEMISTRY METHOD 08/17/2024 6:54 PM [facility] Total Protein 7.7 6.0 - 8.0 g/dL LAB CHEMISTRY METHOD 08/17/2024 6:54 PM EDT [facility] Albumin 4.2 3.2 - 5.0 g/dL LAB CHEMISTRY METHOD 08/17/2024 6:54 PM EDT [facility] Total Bilirubin 0.5 0.0 - 1.4 mg/dL LAB CHEMISTRY METHOD 08/17/2024 6:54 PM EDT [facility] Blood Venous blood specimen / Unknown Venipuncture / Unknown 08/17/2024 3:00 PM EDT 08/17/2024 3:00 PM EDT Mike ARAUZ LAB BLOOD ORDERABLES Final Res ult [facility] [address] [place] [address], * Colonoscopy (07/16/2021) Colonoscopy no interpretation , abstracted Anatomical Region Laterality Modality Other Historical Provider HEALTH MAINTENANCE Final Result * Hepatitis C Screening (02/03/2014) Pathologist [facility] Hepatitis C Screening abstracted Historical Provider HEALTH MAINTENANCE Final Result from Last 3 Months or Most Recently Relevant to Health Maintenance Insurance [facility] [place] [address] [facility]
--- OUTSIDE RECORDS SUMMARY | 2025-04-08 15:32 | XMS_ITS | Clinical Summary ---
Author Organization [facility] Address [address] [place] [address] Care Team Providers Care Toll Settlement Clerk Name Role Phone Joe Ball MD Primary Care Provider + [phone] Allergies Active Allergy Reactions Criticality Noted Date [...] age to complete this topic Care Teams Toll Settlement Clerk Relationship Specialty Start Date End Date Joe Ball MD PCP - General Monitoring Tech 04/19/21
[2025-04-08 15:35] VITALS: BP 169/88; PULSE 67; O2SAT 98; BMI 29.1
== END 2025-04-08 15:54 | disposition home or self-care (01) ==
PROVIDERS: Visit Provider Registered Nurse Emergency
DX: M96.1 Postlaminectomy syndrome, not elsewhere classified (principal); G89.4 Chronic pain syndrome; M51.369 Other intervertebral disc degeneration, lumbar region without mention of lumbar back pain or lower extremity pain; M47.816 Spondylosis without myelopathy or radiculopathy, lumbar region; Z98.1 Arthrodesis status; M48.00 Spinal stenosis, site unspecified; M48.062 Spinal stenosis, lumbar region with neurogenic claudication
CPT/HCPCS: 99213; G2211

== ENCOUNTER → 2025-04-08 15:27 | Outpatient (BNVA) | payer OTHER, SELFPAY | PROVIDERS: Visit Provider Registered Nurse Emergency | DX: M96.1 Postlaminectomy syndrome, not elsewhere classified (principal); M51.369 Other intervertebral disc degeneration, lumbar region without mention of lumbar back pain or lower extremity pain; M47.816 Spondylosis without myelopathy or radiculopathy, lumbar region; M48.00 Spinal stenosis, site unspecified; Z98.1 Arthrodesis status; G89.4 Chronic pain syndrome; M48.062 Spinal stenosis, lumbar region with neurogenic claudication | CPT/HCPCS: 99212 ==